=== PATIENT | male | born 2000 | race African-American/Black ===

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

== ENCOUNTER 2021-05-03 23:54 | Emergency (ER) | payer MEDICAID ==
[2021-05-04 01:02] LABS: BASOPHIL 0.6 % (0-2); EOSINOPHIL 6.2 % (0-5); HGB 13.5 g/dl (13.2-18.0); LYMPHOCYTE 27.5 % (15-48); MCHC 32.9 g/dL (32.0-36.0); MONOCYTE 8.1 % (0-12); MPV 10.6 fL (6.0-9.5); NEUTROPHIL 55.9 % (41-80); NRBC 0; PLT 217 K/uL (150-400); RBC 4.66 M/uL (4.70-6.00); RDW 13.9 % (11.5-14.0); WBC 12.7 K/uL (4.0-10.5)
[2021-05-04 01:20] LABS: ALBUMIN 3.6 g/dL (3.4-5.0); BILIRUBIN - TOTAL 0.2 mg/dL (0.2-1.0); BUN/CREAT RATIO (CALC) 18.2 RATIO; CREATININE 0.77 mg/dL (0.67-1.17); GLOBULIN (CALCULATION) 3.4 g/dL; POTASSIUM 3.8 mmol/L (3.5-5.1)
[2021-05-04] MEDS ORDERED: ZOFRAN4 M1 PO (02:09)
[2021-05-04] MEDS ORDERED: MEDROL 4MG DOSEP4 MG PO (02:09)
[2021-05-04] MEDS ORDERED: ZPAK PO (02:09)
[2021-05-04] MEDS ORDERED: VENTOLIN HFA18 GM INH (02:09)
[2021-05-04] MEDS ORDERED: LISINOPRIL10 MG PO (03:40)
[2021-05-04] MEDS ORDERED: ASPIRIN EC81 MG PO (03:40)
[2021-05-04] MEDS ORDERED: LIPITOR20 MG PO (03:40)
== END 2021-05-04 03:55 | disposition home or self-care (01) ==
LOC: FER 23:54
PROVIDERS: Emergency Medicine
DX: U07.1 COVID-19 (principal); I21.4 Non-ST elevation (NSTEMI) myocardial infarction; I10 Essential (primary) hypertension; F17.200 Nicotine dependence, unspecified, uncomplicated; E66.01 Morbid (severe) obesity due to excess calories; Z23 Encounter for immunization; Z86.16 Personal history of COVID-19; Z91.14 Patient's other noncompliance with medication regimen; Z79.899 Other long term (current) drug therapy; Z53.29 Procedure and treatment not carried out because of patient's decision for other reasons
CPT/HCPCS: 36415; 71045; 80053; 83880; 84484; 85025; 85379; 93005; M0243; U0002